=== PATIENT | male | born 1975 | race Caucasian/White ===

== ENCOUNTER 2023-05-29 08:51 | Day surgery (SDC) | payer OTHER ==
[~2023-05-29] VITALS: Ht 188 cm; Wt 97.6 kg
[~2023-05-29 08:51] MED LIST: LR 1,000 ML IV SCH; Ondansetron 4 MG/2 ML VIAL IV PRN
[2023-05-29] MEDS ORDERED: Lidocaine PF 2% (20 MG/ML) 5 ML VIAL ONE (09:00)
[2023-05-29 09:08] VITALS: BP 128/85; PULSE 63; TEMP 97.1
[2023-05-29] MEDS ORDERED: ZYRTEC5 MG PO (09:42)
[2023-05-29] MEDS ORDERED: IBU600 MG PO (09:42)
[2023-05-29 10:05] VITALS: BP 118/79; PULSE 66; TEMP 97.3
[2023-05-29 10:20] VITALS: BP 123/85; PULSE 62
--- NOTE | 2023-05-29 11:06 | NUR ---
1005-PATIENT ARRIVED VIA CART TO [facility], ALERT AND ORIENTED ON ARRIVAL. ASSISTED TO RECLINER, WARM BLANKETS PROVIDED. VITAL SIGNS TAKEN, VSS. PATIENT DENIES PAIN OR NAUSEA. UPDATE GIVEN TO PATIENT AND SPOUSE AT BEDSIDE. 1020-VSS. PATIENT TOLERATING PO INTAKE WITHOUT COMPLAINT 1035-DISCHARGE PAPERWORK DISCUSSED WITH PT, QUESTIONS INVITED. 1040-IV CATHETER DISCONTINUED, TIP INTACT. PRESSURE HELD AND BANDAGE APPLIED. PATIENT AMBULATED INDEPENDENTLY TO BATHROOM AND BACK TO ROOM. DRESSED INDEPENDENTLY. 1100-PATIENT DISCHARGED HOME TO PO VIA WHEELCHAIR, ACCOMPANIED BY SPOUSE. ALL BELONGINGS AND DC PAPERWORK SENT WITH PT.
== END 2023-05-29 11:00 | disposition home or self-care (01) ==
LOC: SDCO 08:51 → EDSEX 10:15 → SDCO 10:15
DX: Z12.11 Encounter for screening for malignant neoplasm of colon (principal); D12.5 Benign neoplasm of sigmoid colon; K57.30 Diverticulosis of large intestine without perforation or abscess without bleeding
CPT/HCPCS: J2704; J7120